=== PATIENT | female | born 1970 | race Caucasian/White ===

== ENCOUNTER → 2019-02-09 11:05 | Outpatient (CLI) | payer OTHER, SELFPAY ==
--- NOTE | 2019-02-08 15:25 | EMB_PTH ---
PATIENT: TAVARES JUNIOR LOC: [facility] U#:[id number] AGE/SX: 54/F ROOM: RE02/09/[address]: Dr. Stanton Kulkarni MD : 1970 BED: DIS: SPEC #: [id number] RECD: 02/09/19 10:35 STATUS: AKASH RICHELLE #: [id number] MICHELE: 02/08/19 15:[address]: Stanton Kulkarni DEPT: SURGICAL PATHOLOGY RECD BY: Larry Capellan Tissues: Endometrium, NOS Procedures: Surgery Specimen Level IV HEADER OPERATION: Endometrial biopsy PRE-OP DIAGNOSIS: N93.9 TISSUE SUBMITTED: Endometrial biopsy MICROSCOPIC DIAGNOSIS Endometrium, biopsy: Scant strips of benign superficial endometrium. AM:kalpana 02/10/19 MICROSCOPIC DESCRIPTION Slides are reviewed. GROSS DESCRIPTION Received in fixative is one container labeled with the patient's name and designated endometrial biopsy. The specimen consists of multiple irregular fragments of mucoid light taylor soft tissue that in aggregate measure 2 x 1 x <0.1 cm. The specimen is totally submitted in one cassette. / AM:kalpana 02/09/19 TC:5 CPT: 19368
== END ==
PROVIDERS: Referring Provider Obstetrics & Gynecology; Visit Provider Obstetrics & Gynecology
DX: N93.9 Abnormal uterine and vaginal bleeding, unspecified (principal)
CPT/HCPCS: 88305

== ENCOUNTER → 2019-02-15 17:50 | Outpatient (CLI) | payer OTHER, SELFPAY | PROVIDERS: Referring Provider Nurse Practitioner Adult Health | DX: R82.998 Other abnormal findings in urine (principal) | CPT/HCPCS: 87086 ==

== ENCOUNTER 2019-04-13 08:41 | Day surgery (SDC) | payer SELFPAY, OTHER ==
[2019-04-13 08:58] LABS: Internal QC Validated? YES +Cl - CLEAR BKGD
[2019-04-13 09:02] LABS: Pregnancy, Urine Negative Negative
[2019-04-13 09:05] VITALS: BP 110/80; PULSE 66; RESP 16; TEMP 36.5; O2SAT 100; BMI 28.4
[2019-04-13] MEDS: Lactated Ringers 1,000 ML 100 ML IV (09:18)
[2019-04-13] MEDS: Cefazolin 2 GM in 0.9% Normal Saline 100 ML IV (12:04)
--- NOTE | 2019-04-13 12:13 | DCINST_ITS ---
- Discharge Diagnoses Reason(s) for Visit for Discharge Instructions: TVT sling You will use the following diet at home:: Regular Your food should be the consistency of: Regular Discharge Activity: Return to Normal Activity, May not drive while taking narcotic pain medications. Return to work on:: 04/14/19 Call your doctor if your incision/area has: Sudden Increased Bleeding, Increased Pain/ Swelling, Increased Redness, Foul Smelling Discharge, Swelling at the incision site Catheter: Gupta to leg bag Drain: Foreman Instructions: Stress Urinary Incontinence: Having Midurethral Sling Surgery Allergies/Adverse Reactions: Allergies No Known Allergies Allergy (Verified 04/13/19 09:04) Medications to take at Discharge Cephalexin [Keflex] 500 mg PO Q8 #21 cap 04/13/19 Hydrocodone/Acetaminophen [[place] 5-325 Tablet] 1 ea PO Q4H PRN PRN 5 Days #14 tab 04/13/19 The following prescriptions were given: Cephalexin [Keflex] 500 mg PO Q8 #21 cap Prescription Printed Hydrocodone/Acetaminophen [[place] 5-325 Tablet] 1 ea PO Q4H PRN PRN 5 Days #14 tab PRN Reason: Pain Score 1-10/10 Prescription Printed Primary Care Physician: Care Physician,No Primary [Primary Care Provider] - Test Results: Test results from this visit will be discussed in further detail at your follow- up appointment, if applicable. Please Follow Up With: Damien Castillo MD - with [employer] PROFESSOR When: call for an appt next with with [employer] PROFESSOR to remove gupta
--- NOTE | 2019-04-13 12:59 | PCM.OPRPT ---
Report of Operation Date of Procedure: 04/13/19 Pre-Operative Diagnosis: Stress incontinence Post-Operative Diagnosis: Same Surgery/Procedure Performed:: Cystoscopy and trans-vaginal tension-free vaginal sling suprapubic approach. Description of Surgical Findings:: 48-year-old female with significant stress incontinence she has to wear multiple pads per day has to wear depends and heavy depends at the change of multiple times on examination she had significant leakage with just coughing. She is tried conservative measures no improvement and we talked about the options of management including a pubovaginal sling, synthetic sling with mesh. We talked about the outcomes that showed CAD with all the procedures the risk of failure to cure, obstructive voiding, retention of urine, requiring more surgery to correct any problems with the mesh. Risk of infection pain and erosion of the mesh into the vaginal area. 48-year-old female taken back to the operative room at the smooth induction of anesthesia she was placed supine on the table the urethra vaginal area prepped and draped in usual sterile fashion she underwent a vaginal vault prep, she was placed in dorsolithotomy position with the legs in stirrups in Trendelenburg. A weighted vaginal speculum was placed into the vagina I then inspected the urethra and anterior vagina identified the bladder neck and marked this with a marker I then marked out the midline urethra infiltrated the urethra in the midline below the urethra with a lidocaine and 1-100,000 epinephrine. After injecting we held pressure and the bleeding stopped and I made an incision below the urethra in the midline was about 2-1/2 cm incision I then used a bit Metzenbaum curved scissors to dissect on the right and left side next to the urethra to created a pocket space up to the pubic bone once this was created then I went anterior on the marked the midline went through centimeters to the midline and marked into the skin made a small incision 1 cm on each side from the midline I then placed the catheter into the bladder drained the bladder and then passed the trocar top-down there was a long cylindrical metal trocar for the sling I then grabbed the end of the sling I performed a cystoscopy to make sure that he perforate the bladder the urethra which I did not. And then passed a sling up I then went to the right side the same thing top-down with the trocar I inspected the bladder to make sure there is no perforation which there was not, I then grabbed the 2 ends of the sling and pulled it up for the tensioning used a heavy Hernandez scissors below the urethra that tension I pulled both ends of the sling all the way up below the urethra with the Hernandez scissors and then released the sling and then at this point then I did a cystoscopy with a 30 degree lens to check the ureter with no injury damage the urethra and the bladder was clear of any sling material I then filled the bladder up a portion of bladder and she leads a very very easily at this point I thought that even I left with the ureter the sling tension-free it was way to use way too loose and would probably not give her any benefit so I did tension up the right side and the left side is doing a little bit more and that I did another Valsalva pressure on the bladder and this time relief but only very minimal I thought this to be sufficient so I then I cut the excess length of the slings on both the right left side place a catheter into the bladder closed the midline vaginal incision with a running 3-0 Vicryl and closed the suprapubic incisions with Dermabond glue. She will go home with a catheter of the bladder recover and I will see her next week for catheter removal. Type of Anesthesia:: General Drains: Mariano - Admit VTE Documentation VTE Present on Admission: No VTE Mechan Device Prophylaxis: SCD's
[2019-04-13 13:15] VITALS: BP 110/80; BP 125/90; PULSE 72; RESP 16; TEMP 36.3; O2SAT 98
[2019-04-13 13:30] VITALS: BP 110/80; BP 135/85; PULSE 70; RESP 16; O2SAT 99
[2019-04-13] MEDS: Ketorolac 15 MG/ML Vial IV (13:32)
[2019-04-13 13:45] VITALS: BP 110/80; BP 122/86; PULSE 65; RESP 16; TEMP 36.2; O2SAT 98; O2SAT 99
[2019-04-13 14:43] VITALS: BP 110/80; BP 114/79; PULSE 72; RESP 18; TEMP 36.7; O2SAT 100
--- NOTE | 2019-04-15 07:40 | PCM.HP.STD ---
History of Present Illness Date of Admission: 04/15/19 Chief Complaint: incontinence The patient is a 48 year old Female with stress incontinence plan for sling today Past Medical History Allergies No Known Allergies Allergy (Verified 04/13/19 09:04) Home Medications: Ambulatory Orders Medication Instructions Recorded Cephalexin [Keflex] 500 mg PO Q8 #21 cap 04/13/19 Hydrocodone/Acetaminophen [[place] 1 ea PO Q4H PRN PRN 5 Days #14 tab 04/13/19 5-325 Tablet] Smoking Status: Never smoker Tobacco Use: Non-smoker VTE Information - Inpt Only VTE Present on Admission: No - Physical Exam Vitals/I&O's: Vital Signs Temp Pulse Resp BP Pulse Ox 98.1 F 72 18 114/79 100 04/13/19 14:43 04/13/19 14:43 04/13/19 14:43 04/13/19 14:43 04/13/19 14:43 Oxygen Delivery Method Room Air Weight: 68.311 kg Body Mass Index (BMI) 28.4 Intake and Output for Last 24 Hours 04/13/19 04/14/19 04/15/19 23:59 23:59 23:59 Intake Total 1110 / 1110 Balance 1110 / 1110 General: Alert, Oriented x3, Cooperative HEENT: Atraumatic, PERRLA, EOMI, Normocephalic Neck: Supple, No JVD, Negative Carotid Bruits Lungs: Clear to auscultation, Normal air movement Cardiovascular: Regular rate, No murmurs Abdomen: Bowel Sounds Present, Soft, Non Tender Extremities: No edema, Capillary Refill Less than 3 Seconds Skin: No rashes, No breakdown Musculoskeletal: No Tenderness to Palpation of Joints or Extremities Neurological: Cranial nerves II-XII grossly intact Psych/Mental Status: Normal Affect, Appropriate Assessment/Plan plan for sling
== END 2019-04-13 15:36 | disposition home or self-care (01) ==
LOC: SDC 08:42 → AC 08:44
PROVIDERS: Anesthesiology; Referring Provider Urology; Visit Provider Urology
PROC: 0TJB8ZZ Inspection of Bladder, Via Natural or Artificial Opening Endoscopic (ICD-10-PCS; CPT 57288; principal; 2019-04-13 10:45)
DX: N39.3 Stress incontinence (female) (male) (principal)
CPT/HCPCS: 57288; 81025; J7120; C1771; J2405